=== PATIENT | male | born 1955 | race Caucasian/White ===

== ENCOUNTER → 2016-06-30 | Outpatient (CLI) | payer BC | END | disposition disaster alternative care site (69) | LOC: GRAD 13:37 | DX: C32.1 Malignant neoplasm of supraglottis (principal); C78.01 Secondary malignant neoplasm of right lung | CPT/HCPCS: Q9967 ==

== ENCOUNTER → 2016-07-06 | Outpatient (CLI) | payer BC | END | disposition disaster alternative care site (69) | LOC: GCAR 12:42 | DX: Z51.81 Encounter for therapeutic drug level monitoring (principal); I49.9 Cardiac arrhythmia, unspecified; C32.1 Malignant neoplasm of supraglottis; C78.01 Secondary malignant neoplasm of right lung; Z79.899 Other long term (current) drug therapy ==

== ENCOUNTER → 2016-09-14 | Outpatient (CLI) | payer BC | END | disposition disaster alternative care site (69) | LOC: GRAD 09-07 14:00 | DX: C76.0 Malignant neoplasm of head, face and neck (principal); C32.1 Malignant neoplasm of supraglottis; C78.01 Secondary malignant neoplasm of right lung; R60.0 Localized edema | CPT/HCPCS: Q9967 ==

== ENCOUNTER → 2016-10-12 | Outpatient (CLI) | payer BC | END | disposition disaster alternative care site (69) | LOC: GRAD 13:00 | DX: C76.0 Malignant neoplasm of head, face and neck (principal); R05 Cough; C32.1 Malignant neoplasm of supraglottis; C78.01 Secondary malignant neoplasm of right lung; R91.8 Other nonspecific abnormal finding of lung field ==

== ENCOUNTER → 2016-11-14 | Outpatient (CLI) | payer BC | END | disposition disaster alternative care site (69) | LOC: GRAD 11-09 08:00 | DX: C32.1 Malignant neoplasm of supraglottis (principal); C78.01 Secondary malignant neoplasm of right lung; D70.1 Agranulocytosis secondary to cancer chemotherapy; R53.83 Other fatigue; R68.2 Dry mouth, unspecified; R47.02 Dysphasia; R91.8 Other nonspecific abnormal finding of lung field | CPT/HCPCS: Q9967 ==